=== PATIENT | male | born 1975 | race Caucasian/White ===

== ENCOUNTER 2021-12-17 11:10 | Emergency (ER) | payer BC, SELFPAY ==
[2021-12-17 11:21] VITALS: BP 128/74; PULSE 66; RESP 18; TEMP 36.7; O2SAT 96; BMI 24.3
--- NOTE | 2021-12-17 11:35 | ED.EYEPROB ---
HPI - Eye Problem General Chief complaint: Eye Problems Stated complaint: r eye inj Time Seen by Provider: 12/17/21 11:28 Source: patient Mode of arrival: ambulatory Limitations: no limitations History of Present Illness HPI Narrative: 46 y/o male presents to the ER for evaluation of right eye bruising and pain after a car antenna hit him in the eye this morning. He states he was cleaning a car when the antenna hit him in the face, 1st the mouth and then sprung up and hit the right eye. He sustained a small laceration just below the eye and had immediate pain, swelling and bruising below the eye. He has bleeding within the lower conjunctiva as well without any assocaited vision changes. He is on plavix but no systemic anticoagluation. He denies pain with eye movement or tenderness of the orbit. MD chief complaint: eye pain, eye redness and eye injury Onset (ago): hour(s) (1) Onset description: sudden Duration: constant Location: right eye Eye Symptoms: redness and pain Place: home Mechanism: direct trauma Severity: mild Severity scale (1-10): 4 If Pain, Quality: aching Context: trauma Associated symptoms: none Treatments Prior to Arrival: none Related Data Patient tetanus UTD: No Previous Rx's Medication Instructions Recorded sulfacetamide sodium 10 % eye 1 drp OPHTHALMIC (EYE) Q3H #15 ml 12/17/21 drops (Bleph-10) Allergies Allergy/AdvReac Type Severity Reaction Status Date / Time No Known Allergies Allergy Verified 12/17/21 11:26 Review of Systems Review of Systems: Constitutional: No Fever, No Chills ENT/Mouth: No sore throat, No dental trauma Eyes: + Eye Pain, + Swelling, + Redness, No vision changes Respiratory: No Cough, No Sputum, No Wheezing, No dyspnea Gastrointestinal: No Nausea, No Vomiting Skin: + Skin Lesions, No rash Neuro: No Weakness, No Numbness, No Dizziness, No Headache Heme/Lymph: +Bruising, No Lymphadenopathy PMFSH Past Medical History Medical History (Updated 12/17/21 @ 11:50 by CAREN Lam) HLD (hyperlipidemia) HTN (hypertension) Stroke Social History Social History Advance Directives: No Advance Directives Information Provided: Yes Physical Exam Vital Signs: Vital Signs: Last Vital Signs Temp 98.1 F 12/17/21 11:21 Pulse 66 12/17/21 11:21 Resp 18 12/17/21 11:21 BP 128/74 12/17/21 11:21 Pulse Ox 96 12/17/21 11:21 BMI result Body Mass Index 24.3 Appearance: Alert. Oriented X3. No acute distress. HEENT:right eye with ecchymosis and swelling inferiorly, subconjunctival hemorrhage present inferiorly, fluroscene exam with a tiny linear abrasion on the cornea at 3 oclock position, no ulcerations or FB seen. EOMI, PERRLA. nontender orbits. there is a 0.5cm superficial laceration below the right eye. VA noted. CVS: Normal heart rate and rhythm. Pulses normal. Respiratory: No respiratory distress. Skin: Skin warm and dry. Normal skin color. Normal skin turgor. No rashes. Extremities: normal inspection Neuro: Oriented X 3. No motor deficit. No sensory deficit. CN II-XII intact. 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 No visual changes. Small lac superficial and very close to the eye with no need for closure, wound margins are well approximated. Fluoro exam with small abrasion - abx gtts ordered. Discussed management with patient. Stable for d/c home with outpatient follow up. Critical Care Time Critical Care Time Critical Care Time: No Discharge Plan Discharge Clinical Impression: Corneal abrasion, Subconjunctival hemorrhage Patient Disposition: Home, Self-Care Instructions: Subconjunctival Hemorrhage (ED), Corneal Abrasion (DC) Additional Instructions: Use the prescribed antibiotic drops every 3-4 hours while awake for the next week Use ice several times a day for swelling and pain Follow up with your eye doctor in 1 week If you develop new or worsening symptoms call 911 or come back to the ER for further evaluation. Prescriptions: New sulfacetamide sodium [Bleph-10] 10 % drops 1 drp ophthalmic (eye) Q3H Qty: 15 0RF
[2021-12-17] MEDS: Tetracaine HCl/PF 0.5% Oph Sol 4 ML DROPS 1 DROP EYE-RIGHT (11:36)
[2021-12-17] MEDS: Fluorescein Sodium STRIP 1 STRIP EYE-RIGHT (11:36)
[2021-12-17] MEDS: Diphth,Pertus(ACell),Tet Adult 0.5 ML SYRINGE IM (11:55)
== END 2021-12-17 12:05 | disposition home or self-care (01) ==
PROVIDERS: Emergency Provider Emergency Medicine; PCP Family Medicine
DX: S05.01XA Injury of conjunctiva and corneal abrasion without foreign body, right eye, initial encounter (principal); H11.31 Conjunctival hemorrhage, right eye; S01.111A Laceration without foreign body of right eyelid and periocular area, initial encounter; I10 Essential (primary) hypertension; Z86.73 Personal history of transient ischemic attack (TIA), and cerebral infarction without residual deficits; Z79.02 Long term (current) use of antithrombotics/antiplatelets; W22.8XXA Striking against or struck by other objects, initial encounter; Y93.9 Activity, unspecified; Y92.009 Unspecified place in unspecified non-institutional (private) residence as the place of occurrence of the external cause; Y99.9 Unspecified external cause status
CPT/HCPCS: 90471; 90715; 99284